=== PATIENT | female | born 1975 | race Caucasian/White ===

== ENCOUNTER 2017-01-28 18:11 | Emergency (ER) | payer SELFPAY ==
[2017-01-28] MEDS ORDERED: [UNRECOGNIZED DRUG - REMARK] PO (18:28)
== END 2017-01-28 18:40 | disposition left against medical advice (07) ==
LOC: EMS 18:14
DX: R07.9 Chest pain, unspecified (principal); R20.0 Anesthesia of skin; Z53.21 Procedure and treatment not carried out due to patient leaving prior to being seen by health care provider
CPT/HCPCS: 93005; 99281